=== PATIENT | male | born 1985 | race Hispanic/Latino ===

== ENCOUNTER 2022-08-27 07:11 | Emergency (ER) | payer SELFPAY ==
[2022-08-27] MEDS ORDERED: IBUPROFEN 400 MG TAB ONE (07:40)
[2022-08-27] MEDS ORDERED: NA CHLORIDE 0.9% 1,000 ML ONE (07:40)
[2022-08-27 07:54] LABS: Absolute Lymphocytes (CBC) 0.8 K/uL (0.7-4.9); RBC Red Blood Cell Count 4.98 M/uL (4.33-5.43)
[2022-08-27 07:58] LABS: Hematocrit 43.3 % (39.6-49.0); MPV 8.6 fL (7.6-11.3)
[2022-08-27 08:08] LABS: Potassium 3.7 mmol/L (3.5-5.1)
[2022-08-27 08:34] LABS: SARS-COV-2 RT PCR POSITIVE (NEGATIVE)
--- NOTE | 2022-08-27 08:34 | RAD REPORT ---
EXAM DESCRIPTION: RAD - Chest Single View - 08/27/2022 8:24 am CLINICAL HISTORY: Cough COMPARISON: No comparisons FINDINGS: Lines: None. Lungs: Low lung volumes with probable basilar atelectasis. Pleural: No significant pleural effusions or pneumothorax. Cardiac: The heart size is within normal limits. Mediastinum: Within normal limits. Bones: No acute fractures. Other: None IMPRESSION: Low lung volumes and likely basilar atelectasis. No definite consolidative airspace dise ase or edema.
--- NOTE | 2022-08-27 09:32 | ER ---
Nurse's Notes [facility] Name: Seth Wise Age: 37 yrs Sex: Male : 1985 Arrival Date: 08/27/2022 Time: 07:12 Bed 20 Private MD: Diagnosis: SARS-associated coronavirus as the cause of diseases classified elsewhere;Fever, unspecified Presentation: 08/27 07:28 Chief complaint: Patient states: he started feeling bad yesterday night around 7pm. kc6 decided to take a nap and woke up at 9pm with 105 fever. temperature at 4am this morning was 102. reports cough, nausea, low back pain, and loose stools. Coronavirus screen: Vaccine status: Patient reports receiving the 2nd dose of the covid vaccine. Ebola Screen: No symptoms or risks identified at this time. Initial Sepsis Screen: Does the patient meet any 2 criteria? Temp <36.0*C (96.8*F)) or > 38.3*C (100.9*F). Does the patient have a suspected source of infection? No. Patient's initial sepsis screen is negative. Risk Assessment: Do you want to hurt yourself or someone else? Patient reports no desire to harm self or others. Onset of symptoms was August 26, 2022 at 19:00. 07:28 Method Of Arrival: Ambulatory [facility] 07:28 Acuity: FANNIE 3 [facility] Triage Assessment: 07:31 General: Appears in no apparent distress. uncomfortable, ill, Behavior is calm, kc6 cooperative, appropriate for age. Pain: Complains of pain in left low back and right low back Pain does not radiate. Pain currently is 4 out of 10 on a pain scale. Quality of pain is described as aching, Pain began 1 day ago. Is continuous, Alleviated by rest, Aggravated by increased activity, Also complains of no other associated symptoms. EENT: Reports nasal congestion Denies difficulty swallowing. Neuro: Paige Agitation-Sedation Scale (RASS): 0 - Alert and Calm Level of Consciousness is awake, alert, obeys commands, Oriented to person, place, time, situation, Appropriate for age. Cardiovascular: Heart tones S1 S2 present Capillary refill < 3 seconds. Respiratory: Reports cough that is non-productive, Airway is patent Trachea midline Respiratory effort is even, unlabored, Respiratory pattern is regular, symmetrical, Breath sounds are diminished bilaterally. Denies shortness of breath. GI: Abdomen is flat, non-distended, Stools are reported to be loose, Bowel sounds present X 4 quads. Abd is soft and non tender X 4 quads. Reports nausea, Patient currently denies vomiting. : No signs and/or symptoms were reported regarding the genitourinary system. Derm: No signs and/or symptoms reported regarding the dermatologic system. Skin is intact, Skin is pink, warm \T\ dry. Musculoskeletal: No signs and/or symptoms reported regarding the musculoskeletal system. Circulation, motion, and sensation intact. Capillary refill < 3 seconds, Range of motion: intact in all extremities. Historical: - Allergies: 07:30 No Known Allergies; kc6 - Home Meds: 07:30 None [Active]; kc6 - PMHx: 07:30 None; 6 - PSHx: 07:30 Appendectomy; 6 - Immunization history:: Client reports receiving the 2nd dose of the Covid vaccine, Flu vaccine is not up to date. - Social history:: Smoking status: Patient denies any tobacco usage or history of. - Family history:: not pertinent. - Hospitalizations: : No recent hospitalization is reported. Screenin:36 [facility] ED Fall Risk Assessment (Adult) History of falling in the last 3 months, [facility] including since admission No falls in past 3 months (0 pts) Confusion or Disorientation No (0 pts) Intoxicated or Sedated No (0 pts) Impaired Gait No (0 pts) Mobility Assist Device Used No (0 pt) Altered Elimination No (0 pt) Score/Fall Risk Level 0 - 2 = Low Risk Oriented to surroundings, Maintained a safe environment, Educated pt \T\ family on fall prevention, incl call for assistance when getting out of bed, Assessed \T\ reinforced patient's understanding of fall precautions, Hourly rounding (assess needs \T\ fall precautionary measures) done. Abuse screen: Denies threats or abuse. Denies injuries from another. Nutritional screening: No deficits noted. Tuberculosis screening: No symptoms or risk factors identified. Assessment: 07:33 Reassessment: please see triage assessment. [facility] 08:28 Reassessment: Patient appears in no apparent distress at this time. No changes from [facility] previously documented assessment. Patient and/or family updated on plan of care and expected duration. Pain level reassessed. Patient is alert, oriented x 3, equal unlabored respirations, skin warm/dry/pink. 09:23 Reassessment: Patient appears in no apparent distress at this time. No changes from kc6 previously documented assessment. Patient and/or family updated on plan of care and expected duration. Pain level reassessed. Patient is alert, oriented x 3, equal unlabored respirations, skin warm/dry/pink. Vital Signs: 07:28 BP 125 / 82; Pulse 122; Resp 17 S; Temp 102.1(O); Pulse Ox 99% on R/A; Weight 116.57 kg kc6 (R); Height 5 ft. 10 in. (177.80 cm) (R); Pain 4/10; 08:28 BP 112 / 68; Pulse 127; Resp 24 S; Temp 102.6(O); Pulse Ox 95% on R/A; kc6 09:23 BP 115 / 63; Pulse 111; Resp 18 S; Temp 101.0(O); Pulse Ox 96% on R/A; kc6 07:28 Body Mass Index 36.88 (116.57 kg, 177.80 cm) kc6 ED Course: 07:12 Patient arrived in ED. am2 07:21 Rafael Pinon MD is Attending Physician. rn 07:28 Bernie Price, NASRIN is Primary Nurse. kc6 07:30 Triage completed. kc6 07:33 Patient has correct armband on for positive identification. Bed in low position. Call [facility] light in reach. Side rails up X 1. Adult w/ patient. 07:34 Arm band placed on. kc6 07:51 COVID-19/FLU A+B Sent. kc6 07:51 Strep Sent. kc6 07:51 Basic Metabolic Panel Sent. kc6 07:52 CBC with Diff Sent. kc6 07:52 Inserted saline lock: 20 gauge in right antecubital area, using aseptic technique. kc6 Blood collected. 08:26 XRAY Chest (1 view) In Process Unspecified. EDMS 08:36 No provider procedures requiring assistance completed. kc6 09:41 IV discontinued, intact, bleeding controlled, No redness/swelling at site. Pressure kc6 dressing applied. Administered Medications: 07:51 Drug: NS 0.9% 1000 ml Route: IV; Rate: 1000 ml; Site: right antecubital; kc6 08:37 Follow up: Response: No adverse reaction; IV Status: Completed infusion; IV Intake: kc6 1000ml 07:51 Drug: Motrin (ibuprofen) 800 mg Route: PO; kc6 08:36 Follow up: Response: No adverse reaction; Temperature is unchanged kc6 Medication: 08:36 VIS not applicable for this client. kc6 Intake: 08:37 IV: 1000ml; Total: 1000ml. kc6 Outcome: 09:32 Discharge ordered by . rn 09:41 Discharged to home ambulatory, with significant other. kc6 09:41 Condition: stable 09:41 Discharge instructions given to patient, significant other, Instructed on discharge instructions, follow up and referral plans. Demonstrated understanding of instructions, follow-up care. 09:42 Patient left the ED. kc6 Signatures: Dispatcher [employer] Rafael Bobo MD MD rn Moreno, Amanda am2 Campbell, Kaitlyn, RN RN kc6
--- NOTE | 2022-08-27 09:32 | EDPHYS ---
Physician Documentation [facility] Name: Seth Wise Age: 37 yrs Sex: Male : 1985 Arrival Date: 08/27/2022 Time: 07:12 Bed 20 Private MD: ED Physician Rafael Pinon HPI: 08/27 08:40 This 37 yrs old Male presents to ER via Ambulatory with complaints of Fever, rn Cough, Loose Stools. 08:40 The patient reports fever, that was measured at 105 degrees Fahrenheit. Onset: The rn symptoms/episode began/occurred yesterday. Modifying factors: there are no obvious modifying factors. Associated signs and symptoms: Pertinent positives: chills, cough, diarrhea, Pertinent negatives: abdominal pain, altered mental status, chest pain, hemoptysis, shortness of breath, swelling, vomiting. Severity of symptoms: At their worst the symptoms were moderate in the emergency department the symptoms are unchanged. The patient has not experienced similar symptoms in the past. The patient has not recently seen a physician. Historical: - Allergies: 07:30 No Known Allergies; kc6 - Home Meds: 07:30 None [Active]; kc6 - PMHx: 07:30 None; kc6 - PSHx: 07:30 Appendectomy; kc6 - Immunization history:: Client reports receiving the 2nd dose of the Covid vaccine, Flu vaccine is not up to date. - Social history:: Smoking status: Patient denies any tobacco usage or history of. - Family history:: not pertinent. - Hospitalizations: : No recent hospitalization is reported. ROS: 08:40 Constitutional: + fever and chills Eyes: Negative for injury, pain, redness, and rn delivery, ENT: + congestion Cardiovascular: Negative for chest pain, palpitations, and edema, Respiratory: + cough, neg for sob Abdomen/GI: Neg for abd pain, + diarrhea : Negative for injury, bleeding, discharge, and swelling, MS/Extremity: Negative for injury and deformity, Skin: Negative for injury, rash, and discoloration, Neuro: Negative for weakness, numbness, tingling, and seizure Exam: 08:40 Constitutional: This is a well developed, well nourished patient who is awake, alert, rn and in no acute distress. Head/Face: Normocephalic, atraumatic. ENT: dry MM, no stridor, no tonsillar hypertrophy Neck: Trachea midline, no thyromegaly or masses palpated, and no cervical lymphadenopathy. Supple, full range of motion without nuchal rigidity, or vertebral point tenderness. No Meningismus. Cardiovascular: Tachycardic, regular Respiratory: + mild tachypnea, no retractions Abdomen/GI: Soft, non-tender Skin: Warm, dry, no cyanosis MS/ Extremity: Pulses equal, no cyanosis. Neuro: Awake and alert, GCS 15 Vital Signs: 07:28 BP 125 / 82; Pulse 122; Resp 17 S; Temp 102.1(O); Pulse Ox 99% on R/A; Weight 116.57 kg kc6 (R); Height 5 ft. 10 in. (177.80 cm) (R); Pain 4/10; 08:28 BP 112 / 68; Pulse 127; Resp 24 S; Temp 102.6(O); Pulse Ox 95% on R/A; kc6 09:23 BP 115 / 63; Pulse 111; Resp 18 S; Temp 101.0(O); Pulse Ox 96% on R/A; kc6 07:28 Body Mass Index 36.88 (116.57 kg, 177.80 cm) kc6 MDM: 07:21 Patient medically screened. rn 08:39 ED course: Independent CXR interpretation by me, CXR neg for acute disease. . rn 08:40 Differential diagnosis: viral Infection, bacterial infection, URI, bronchitis, rn pneumonia COVId, FLU, strep, pneumonia, pneumothorax. Data reviewed: vital signs, nurses notes, lab test result(s), radiologic studies, plain films. Data interpreted: monitor tech: rate is 116 beats/min, rhythm is normal sinus rhythm, regular, with no ectopy, Interpretation: tachycardia, Pulse oximetry: on room air is 96 %. Interpretation: normal. 09:29 Test interpretation: by ED physician or midlevel provider: plain radiologic studies, rn Independent interpretation of CXR by me: no acute disease, neg for pneumothorax. . Counseling: I had a detailed discussion with the patient and/or guardian regarding: the historical points, exam findings, and any diagnostic results supporting the discharge/admit diagnosis, lab results, radiology results, the need for outpatient follow up, to return to the emergency department if symptoms worsen or persist or if there are any questions or concerns that arise at home. Special discussion: I discussed with the patient/guardian in detail that at this point there is no indication for admission to the hospital. It is understood, however, that if the symptoms persist or worsen the patient needs to return immediately for re-evaluation. Based on the history and exam findings, there is no indication for further emergent testing or inpatient evaluation. I discussed with the patient/guardian the need to see the primary care provider for further evaluation of the symptoms. 09:29 ED course: Had discussion with patient regarding Paxlovid for COVID, was considered, rn but patient without pneumonia, otherwise young and healthy, no chronic medical conditions, did fine with COVID before, and we all agreed to dc with OTC meds and return precautions. . 09:31 Response to treatment: the patient's symptoms have markedly improved after treatment, rn and as a result, I will discharge patient. 09:31 ED course: Pt resting comfortably, fever coming down as well as HR. . rn 08/27 07:31 Order name: CBC with Diff; Complete Time: 08:38 rn 08/27 08:39 Interpretation: Normal except: DUSTIN% 80.5. rn 08/27 07:31 Order name: Basic Metabolic Panel; Complete Time: 08:38 rn 08/27 08:39 Interpretation: Normal except: GLUC 114. rn 08/27 07:31 Order name: Strep; Complete Time: 08:38 rn 08/27 08:39 Interpretation: Within normal limits. rn 08/27 07:31 Order name: COVID-19/FLU A+B; Complete Time: 08:38 rn 08/27 08:39 Interpretation: Abnormal. rn 08/27 07:31 Order name: XRAY Chest (1 view); Complete Time: 08:38 rn 08/27 08:39 Interpretation: No acute disease. rn 08/27 08:19 Order name: Throat Culture EDAR 08/27 07:31 Order name: IV Start; Complete Time: 07:51 rn Administered Medications: 07:51 Drug: NS 0.9% 1000 ml Route: IV; Rate: 1000 ml; Site: right antecubital; kc6 08:37 Follow up: Response: No adverse reaction; IV Status: Completed infusion; IV Intake: kc6 1000ml 07:51 Drug: Motrin (ibuprofen) 800 mg Route: PO; kc6 08:36 Follow up: Response: No adverse reaction; Temperature is unchanged kc6 Disposition Summary: 08/27/22 09:32 Discharge Ordered Location: Home rn Problem: new rn Symptoms: have improved rn Condition: Stable rn Diagnosis - SARS-associated coronavirus as the cause of diseases classified elsewhere rn - Fever, unspecified rn Followup: rn - With: Private Physician - When: As needed - Reason: Recheck today's complaints, Re-evaluation by your physician Discharge Instructions: - Discharge Summary Sheet rn - COVID-19 rn - Viral Illness, Adult rn - Prevent the Spread of COVID-19 if You Are Sick - [facility] rn Forms: - Medication Reconciliation Form rn - Thank You Letter rn - Antibiotic rn flight - Prescription Opioid Use rn - Work release form kc6 Signatures: Dispatcher [employer] Rafael Bobo MD MD rn Campbell, Kaitlyn, RN RN kc
[2022-08-27 09:56] VITALS: BP 115/63; TEMP 101; O2SAT 96
== END 2022-08-27 09:42 | disposition home or self-care (01) ==
LOC: ER 07:11
DX: U07.1 COVID-19 (principal)
CPT/HCPCS: 0240U; 36415; 71045; 80048; 85025; 87070; 87081; 96360; 99284; J7030